=== PATIENT | male | born 1960 | race Caucasian/White ===

== ENCOUNTER 2022-06-30 04:03 | Emergency (ER) | payer BC ==
[~2022-06-30] VITALS: Ht 182.9 cm; Wt 120.2 kg
[2022-06-30 04:10] VITALS: BP_SYST 145
[2022-06-30] MEDS ORDERED: KETOROLAC TROMETHAMINE 15 MG VIAL IM ONE (04:45)
[2022-06-30] MEDS ORDERED: LIDOCAINE PATCH 5% 1 EA TP ONE (04:45)
[2022-06-30] MEDS ORDERED: IBUP-1969 PO (05:36)
[2022-06-30] MEDS ORDERED: LIDO1ADH77 TD (05:36)
[2022-06-30 05:49] VITALS: BP_SYST 138
== END 2022-06-30 05:47 | disposition home or self-care (01) ==
LOC: SED 04:03
DX: M25.552 Pain in left hip (principal); M25.511 Pain in right shoulder; M79.605 Pain in left leg; Z79.899 Other long term (current) drug therapy
CPT/HCPCS: 99283; 72170; 96372; J1885